=== PATIENT | male | born 1965 | race African-American/Black ===

== ENCOUNTER 2016-12-05 09:34 | Observation (INO) | payer OTHER ==
[2016-12-05] MEDS ORDERED: SODIUM CHLORIDE 0.9% 1,000 ML IV STA (10:34)
[2016-12-05] MEDS ORDERED: KETOROLAC 30 MG/ML 1 ML VIAL IVP STA (10:34)
[2016-12-05 10:52] LABS: Basophils % (A) 0 %; CH 23.5; CHCM 31.3; Eosinophils % (A) 0 %; HCT 49.5 % (39.0-53.0); HDW 2.69; HGB 15.7 gm/dL (13.0-17.5); Hypochromasia Slight; Luc # (Auto) 0.13; Luc % (Auto) 2; Lymphocytes # (A) 1.6 k/uL (1.0-4.8); Lymphocytes % (A) 28 %; MCHC 31.6 g/dL (31.0-37.0); MCV 75.8 fL (80.0-100.0); Mean Platelet Volume 6.8; Microcytosis Slight; Monocytes # (A) 0.3 k/uL (0-1.0); Monocytes % (A) 5 %; Neutrophils # (A) 3.7 k/uL (1.3-7.7); Neutrophils % (A) 64 %; RBC 6.54 m/uL (4.30-5.90); RDW 14.5 % (11.5-15.5); WBC 5.8 k/uL (3.8-10.6); WBC (Perox) 5.84
[2016-12-05 10:55] LABS: Appearance,Urine Clear (Clear); Bilirubin,Urine Negative (Negative); Glucose,Urine (UA) 4+ (Negative); Ketones,Urine 1+ (Negative); Leukocyte Esterase,Urine Negative (Negative); Nitrite,Urine Negative (Negative); PH, Urine 5.5 (5.0-8.0); Protein,Urine Negative (Negative); Specific Gravity,Urine 1.028 (1.001-1.035); UA Billing (MACRO vs. MICRO) CHEM; Urobilinogen,Urine <2.0 mg/dL (<2.0)
--- NOTE | 2016-12-05 10:59 | XR ---
EXAMINATION TYPE: XR chest 2V DATE OF EXAM: 12/05/2016 COMPARISON: NONE HISTORY: Shortness of breath TECHNIQUE: Frontal and lateral views of the chest are obtained. FINDINGS: Scattered senescent parenchymal changes noted. No evidence for infiltrate. No evidence for atelectasis. Heart size is stable. Mediastinal structures are stable and grossly unremarkable. No evidence for hilar prominence. Degenerative changes dorsal spine. IMPRESSION: 1. No evidence for acute pulmonary disease.
--- NOTE | 2016-12-05 11:00 | XR ---
EXAMINATION TYPE: XR KUB DATE OF EXAM: 12/05/2016 COMPARISON: NONE HISTORY: Pain TECHNIQUE: Single supine KUB image of the abdomen is obtained FINDINGS: Small bowel demonstrates no evidence for dilatation or air fluid levels. Gas and fecal material is seen in non-distended colon. No convincing evidence for pneumoperitoneum. No unusual calcifications. The lung bases are clear. The osseous structures are intact. IMPRESSION: 1. Overall nonobstructive bowel gas pattern.
[2016-12-05 11:12] LABS: ALT 63 U/L (21-72); AST 36 U/L (17-59); Alkaline Phosphatase 111 U/L (38-126); Amylase 40 U/L (30-110); Anion Gap 16 mmol/L; Blood Urea Nitrogen 14 mg/dL (9-20); Calcium 9.9 mg/dL (8.4-10.2); Carbon Dioxide 21 mmol/L (22-30); Chloride 96 mmol/L (98-107); Non-African American GFR(MDRD) >60 (>60 ml/min/1.73 sqM); Potassium 5.1 mmol/L (3.5-5.1); Sodium 133 mmol/L (137-145); Total Bilirubin 0.6 mg/dL (0.2-1.3); Total Protein 7.4 g/dL (6.3-8.2)
[2016-12-05 11:17] LABS: Glucose 541 mg/dL (74-99)
[2016-12-05] MEDS ORDERED: SODIUM CHLORIDE 0.9% 2,000 ML IV ONE (11:22)
[2016-12-05] MEDS ORDERED: INSULIN REGULAR 100 UNIT/ML VIAL SQ ONE (11:23)
--- NOTE | 2016-12-05 11:29 | ED ---
Abdominal Pain HPI - General Chief Complaint: Abdominal Pain Stated Complaint: Back/Side Pain Time Seen by Provider: 12/05/16 10:14 Source: patient Mode of arrival: ambulatory Limitations: no limitations - History of Present Illness Initial Comments: 51 -year-old male presents with dry mouth and polyuria generalized weakness generalized abdominal pain and right flank pain. The nauseous but denies vomiting he does have a family history of diabetes. He has never been diagnosed with diabetes though most probably his family to have. Complains about diffuse abdominal pain he moved his bowels this morning it was normal some nausea no vomiting no fever no chills no headaches no chest pain no shortness of breath no weakness of upper or lower extremity - Related Data Home Medications Medication Instructions Recorded Confirmed No Known Home Medications [No 12/05/16 12/05/16 Known Home Medications] Allergies Allergy/AdvReac Type Severity Reaction Status Date / Time No Known Allergies Allergy Verified 12/05/16 09:54 Review of Systems ROS Statement: Those systems with pertinent positive or pertinent negative responses have been documented in the HPI. ROS Other: All systems not noted in ROS Statement are negative. Past Medical History Past Medical History: No Reported History History of Any Multi-Drug Resistant Organisms: None Reported Additional Past Surgical History / Comment(s): Mass removed from right ear. Past Psychological History: No Psychological Hx Reported Smoking Status: Current every day smoker Past Alcohol Use History: None Reported Past Drug Use History: None Reported General Exam - General Exam Comments Initial Comments: General: The patient is awake and alert, in no distress, and does not appear acutely ill. Skin: Skin is warm and dry and no rashes or lesions are noted. Eye: Pupils are equal, round and reactive to light, extra-ocular movements are intact; there is normal conjunctiva bilaterally. Ears, nose, mouth and throat: There are moist mucous membranes and no oral lesions. Neck: The neck is supple, there is no tenderness or JVD. Cardiovascular: There is a regular rate and rhythm. No murmur, rub or gallop is appreciated. Respiratory: To auscultation bilateral, no wheezing no rhonchi no distress respiratory waldron noticed Gastrointestinal. Mild tenderness noticed in the left upper quadrant area bowel sounds are positive no guarding no rebounds Back: There is no tenderness to palpation in the midline. There is no obvious deformity. Musculoskeletal: Normal ROM, no tenderness, There is no pedal edema. There is no calf tenderness or swelling. No cords were appreciated. Neurological: CN II-XII intact, Cranial nerves III through XII are intact. There are no obvious motor or sensory deficits. Coordination appears grossly intact. Speech is normal. Psychiatric: Cooperative, appropriate mood & affect, normal judgment. Limitations: no limitations Course Vital Signs 12/05/16 09:38 Temperature 98.4 F Pulse Rate 87 Respiratory 18 Rate Blood Pressure 152/70 O2 Sat by Pulse 96 Oximetry Patient's sugar was [id number], he was started on a fluids he is definitely diabetic Extremities: Patient polyuria or gallop at 2 L of fluids and 10 units of regular insulin he do not have any primary care physician he would benefit from coming in and patient getting some diabetes education and getting started on a basic medications, this was discussed with him he agreed with that, also discussed with Dr. Marshall, his hospitalist today he could restart the admission is Medical Decision Making - Lab Data Result diagrams: 12/05/16 10:00 12/05/16 10:00 Lab Results 12/05/16 12/05/16 12/05/16 Range/Units 10:00 10:00 10:00 WBC 5.8 (3.8-10.6) k/uL RBC 6.54 H (4.30-5.90) m/uL Hgb 15.7 (13.0-17.5) gm/dL Hct 49.5 (39.0-53.0) % MCV 75.8 L (80.0-100.0) fL MCH 24.0 L (25.0-35.0) pg MCHC 31.6 (31.0-37.0) g/dL RDW 14.5 (11.5-15.5) % Plt Count 216 (150-450) k/uL Neutrophils % 64 % Lymphocytes % 28 % Monocytes % 5 % Eosinophils % 0 % Basophils % 0 % Neutrophils # 3.7 (1.3-7.7) k/uL Lymphocytes # 1.6 (1.0-4.8) k/uL Monocytes # 0.3 (0-1.0) k/uL Eosinophils # 0.0 (0-0.7) k/uL Basophils # 0.0 (0-0.2) k/uL Hypochromasia Slight Microcytosis Slight Sodium 133 L (137-145) mmol/L Potassium 5.1 (3.5-5.1) mmol/L Chloride 96 L (98-107) mmol/L Carbon Dioxide 21 L (22-30) mmol/L Anion Gap 16 mmol/L BUN 14 (9-20) mg/dL Creatinine 1.02 (0.66-1.25) mg/dL Est GFR (MDRD) Af Amer >60 (>60 ml/min/1.73 sqM) Est GFR (MDRD) Non-Af >60 (>60 ml/min/1.73 sqM) Glucose 541 H* (74-99) mg/dL Calcium 9.9 (8.4-10.2) mg/dL Total Bilirubin 0.6 (0.2-1.3) mg/dL AST 36 (17-59) U/L ALT 63 (21-72) U/L Alkaline Phosphatase 111 (38-126) U/L Total Protein 7.4 (6.3-8.2) g/dL Albumin 4.6 (3.5-5.0) g/dL Amylase 40 (30-110) U/L Lipase 219 (23-300) U/L Urine Color Light Yellow Urine Appearance Clear (Clear) Urine pH 5.5 (5.0-8.0) Ur Specific [place] 1.028 (1.001-1.035) Urine Protein Negative (Negative) Urine Glucose (UA) 4+ H (Negative) Urine Ketones 1+ H (Negative) Urine Blood Negative (Negative) Urine Nitrite Negative (Negative) Urine Bilirubin Negative (Negative) Urine Urobilinogen <2.0 (<2.0) mg/dL Ur Leukocyte Esterase Negative (Negative) Disposition Clinical Impression: Diabetes mellitus, new onset Disposition: ADMITTED IP TO THIS [facility] Condition: Good Referrals: None,Stated [Primary Care Provider] - 1-2 days
[2016-12-05 11:48] LABS: C Reactive Protein 7.3 mg/L (<10.0)
[2016-12-05] MEDS ORDERED: ACETAMINOPHEN TAB 325 MG TAB PO PRN (12:12)
[2016-12-05 12:28] LABS: Glucose,Whole Blood 384 mg/dL (75-99)
[2016-12-05 12:33] LABS: Hemoglobin A1C 12.6 % (4.2-6.1)
[2016-12-05] MEDS ORDERED: LISINOPRIL 10 MG TAB PO STA (12:37)
[2016-12-05] MEDS: ENOXAPARIN 40 MG/0.4 ML SYRINGE SQ SCH (13:40)
[2016-12-05] MEDS: SODIUM CHLORIDE 0.9% 1,000 ML IV ONE ×2 (13:40→21:20)
[2016-12-05 13:42] VITALS: BMI 31.3
--- NOTE | 2016-12-05 14:42 | P.HPIM ---
History of Present Illness H&P Date: 12/05/16 Chief Complaint: Urinating a lot The patient is obese 51-year-old male without any significant past smoking history who presents to the ER with chief complaint of Increasing urination polyuria polydipsia and nocturia over the last 3 days, reports which several times at night to urinate, she reports increasing thirst, or mouth and increasing appetite, reports nausea but denies any vomiting , denies any recent illness, Chest pain or shortness of breath, Denies dysuria. Reports right flank pain otherwise has no complaints. She denies changes in his vision, headache or any numbness or tingling In the ER he was noted to be hyperglycemic the serum blood sugar of 541. He was given 10 units of regular insulin and recommended for admission Review of Systems 14 point Review of systems negative except per HPI Past Medical History Past Medical History: No Reported History History of Any Multi-Drug Resistant Organisms: None Reported Additional Past Surgical History / Comment(s): Mass removed from right ear. Past Psychological History: No Psychological Hx Reported Smoking Status: Current every day smoker Past Alcohol Use History: None Reported Past Drug Use History: None Reported Medications and Allergies Home Medications Medication Instructions Recorded Confirmed Type No Known Home Medications [No 12/05/16 12/05/16 History Known Home Medications] Allergies Allergy/AdvReac Type Severity Reaction Status Date / Time No Known Allergies Allergy Verified 12/05/16 09:54 Physical Exam Vitals: Vital Signs Temp Pulse Resp BP Pulse Ox 12/05/16 09:38 98.4 F 87 18 152/70 96 Intake and Output 12/04/16 12/05/16 12/05/16 22:59 06:59 14:59 Other: Weight 90.718 kg Patient Weight 12/06/16 06:59 Weight 90.718 kg Constitutional: No acute distress, conversant, pleasant Eyes: Anicteric sclerae, moist conjunctiva, no lid-lag, PERRLA ENMT: NC/AT,Oropharynx clear, no erythema, exudates Neck:Supple, FROM, no masses, or JVD, No carotid bruits; No thyromegaly Lungs: Clear to auscultation, Clear to percussion, Normal respiratory effort, no accessory muscle use Cardiovascular: Heart regular in rate and rhythm, No murmurs, gallops, or rubs no peripheral edema Abdominal: Soft Nontender, nom distended, no guarding, no rebound or rigidity, Normoactive bowel sounds No hepatomegaly, No splenomegaly, No palpable mass No abdominal wall hernia noted Skin: Normal temperature, tone, texture, turgor, No induration No subcutaneous nodules, No rash, lesions, No ulcers Extremities:No digital cyanosis No clubbing, Pedal pulses intact and symmetrical Radial pulses intact and symmetrical Normal gait and station, No calf tenderness Psychiatric: Alert and oriented to person, place and time, Appropriate affect Intact judgement Neuro: Muscles Strength 5/5 in all 4 extremities, Sensation to light touch grossly present throughout, Cranial nerves II-XII grossly intact. No focal sensory deficits Results CBC & Chem 7: 12/05/16 10:00 12/05/16 10:00 Labs: Abnormal Lab Results - Last 24 Hours (Table) 12/05/16 12/05/16 12/05/16 Range/Units 10:00 10:00 10:00 RBC 6.54 H (4.30-5.90) m/uL MCV 75.8 L (80.0-100.0) fL MCH 24.0 L (25.0-35.0) pg Sodium 133 L (137-145) mmol/L Chloride 96 L (98-107) mmol/L Carbon Dioxide 21 L (22-30) mmol/L Glucose 541 H* (74-99) mg/dL Urine Glucose (UA) 4+ H (Negative) Urine Ketones 1+ H (Negative) Assessment and Plan (1) Diabetes mellitus, new onset Status: Acute (2) Hyponatremia Status: Acute (3) Elevated BP without diagnosis of hypertension Status: Acute Plan: Patient was placed on observation for new onset type 2 diabetes presenting with hyperglycemia and a blood sugar of 560, A1c has been ordered And is pending. Patient does not appear to be in DKA, we'll start him on scheduled subcu insulin with Lantus 12 units at night and Humalog 4 units Qac before meals with sliding scale coverage. Will consult dietitian, urinalysis indicates normal protein and mild ketones and the patient does appear to have elevated blood pressure initiated lisinopril check a lipid panel, EKG and chest x-ray. Patient is hyponatremic likely secondary to elevated blood sugars. We'll also start metformin and continue to follow his clinical course Time with Patient: Greater than 30
[2016-12-05] MEDS: INSULIN LISPRO (humaLOG) 300 UNIT/3 ML VIAL SQ SCH ×4 (14:56→17:52)
[2016-12-05] MEDS ORDERED: INSULIN GLARGINE 100 UNIT/ML 10 ML VIAL SQ SCH (21:00)
[2016-12-05 21:17] LABS: Glucose,Whole Blood 222 mg/dL (75-99)
[2016-12-05] MEDS: metFORMIN 500 MG TAB PO SCH (21:42)
[2016-12-05 21:54] VITALS: RESP 18; TEMP 98.7
[2016-12-06 00:41] LABS: Glucose,Whole Blood 317 mg/dL (75-99)
[2016-12-06 00:41] LABS: Glucose,Whole Blood 336 mg/dL (75-99)
[2016-12-06 07:18] VITALS: PULSE 98
[2016-12-06] MEDS: INSULIN LISPRO (humaLOG) 300 UNIT/3 ML VIAL SQ SCH ×3 (07:56→12:19)
[2016-12-06 08:10] LABS: Anion Gap 8 mmol/L; Blood Urea Nitrogen 13 mg/dL (9-20); Calcium 8.2 mg/dL (8.4-10.2); Carbon Dioxide 22 mmol/L (22-30); Chloride 104 mmol/L (98-107); Glucose 249 mg/dL (74-99); Non-African American GFR(MDRD) >60 (>60 ml/min/1.73 sqM); Potassium 4.3 mmol/L (3.5-5.1); Sodium 134 mmol/L (137-145)
[2016-12-06] MEDS ORDERED: INSULIN GLARGINE 100 UNIT/ML 10 ML VIAL SQ SCH (08:27)
[2016-12-06] MEDS ORDERED: INSULIN LISPRO (humaLOG) 300 UNIT/3 ML VIAL SQ SCH (08:28)
[2016-12-06] MEDS ORDERED: LISINOPRIL 10 MG TAB PO SCH (09:00)
[2016-12-06] MEDS: ENOXAPARIN 40 MG/0.4 ML SYRINGE SQ SCH (10:01)
[2016-12-06] MEDS: metFORMIN 500 MG TAB PO SCH (10:01)
[2016-12-06 10:18] VITALS: BP 123/66
[2016-12-06 12:26] LABS: Glucose,Whole Blood 238 mg/dL (75-99)
[2016-12-06 12:26] LABS: Glucose,Whole Blood 237 mg/dL (75-99)
[2016-12-06 14:25] LABS: Cholesterol 144 mg/dL (<200); HDL Cholesterol 23 mg/dL (40-60)
--- NOTE | 2016-12-06 14:44 | P.DS ---
Providers Date of admission: 12/05/16 11:35 Expected date of discharge: 12/06/16 Attending physician: Liu Elam MD Primary care physician: Stated None Mery Lundy - Discharge Diagnosis(es) (1) Diabetes mellitus, new onset Current Visit: Yes Status: Acute (2) Essential hypertension Current Visit: Yes Status: Acute (3) Hyponatremia Current Visit: Yes Status: Acute Hospital Course: The patient is a 51-year-old -[place] male that was admitted for new onset type 2 diabetes after presented with symptoms of polyuria and nocturia and polydipsia 2 days. Admission he was noted to be hyperglycemic with a blood sugar of 561, A1c was 12.6 patient was started on Lantus 10 units subcu daily at bedtime and Humalog 5 units subcu every before meals. He was started on low-dose lisinopril at 10 mg by mouth daily and seemed to tolerate it well. Diabetic education was consulted and the patient was taught insulin administration. He was also started on metformin 1000 mg by mouth twice a day. Blood sugars gradually improved and his insulin regimen was adjusted Lantus 20 units subcu daily at bedtime and Humalog 7 units subcu every before meals prior to discharge. He was subsequently discharged home in stable condition With new prescriptions for Lantus Solostar 20 units SQhs, NovoLog flex pen 7 units Sq qac with diabetic supplies. He was encouraged to do 4 times a day testing and provide Mentation at his follow-up visit with his new PCP Dr. Mery Lundy 12/13/16 at 10:00 am. This discharge process took approximately 35 minutes Patient Condition at Discharge: Good Plan - Discharge Summary New Discharge Prescriptions: New Insulin Aspart [NovoLOG Flexpen] 7 units SQ AC-TID #30 ml Insulin Glargine,Hum.rec.anlog [Lantus Solostar] 20 unit SQ HS #30 ml Lisinopril [Zestril] 10 mg PO DAILY #30 tab metFORMIN HCL 1,000 mg PO BID #60 tab Discharge Medication List Insulin Aspart [NovoLOG Flexpen] 7 units SQ AC-TID #30 ml 12/06/16 [Rx] Insulin Glargine,Hum.rec.anlog [Lantus Solostar] 20 unit SQ HS #30 ml 12/06/16 [ Rx] Lisinopril [Zestril] 10 mg PO DAILY #30 tab 12/06/16 [Rx] metFORMIN HCL 1,000 mg PO BID #60 tab 12/06/16 [Rx] Follow up Appointment(s)/Referral(s): Mery Lundy MD [STAFF PHYSICIAN] - 12/13/16 10:30 am () Patient Instructions/Handouts: Hyponatremia (DC) Discharge Disposition: HOME SELF-CARE
[2016-12-06 16:37] LABS: Urine Creatinine 131.2 mg/dL
== END 2016-12-06 15:15 | disposition home or self-care (01) ==
LOC: EC 09:34 → INTOOBSV 11:35 → 5MS5E 11:35
PROVIDERS: ADMIT Family Medicine; ATTEND Family Medicine
DX: E11.65 Type 2 diabetes mellitus with hyperglycemia (principal); E87.1 Hypo-osmolality and hyponatremia; I10 Essential (primary) hypertension; F17.200 Nicotine dependence, unspecified, uncomplicated; E66.9 Obesity, unspecified; Z68.31 Body mass index [BMI] 31.0-31.9, adult; Z83.3 Family history of diabetes mellitus
CPT/HCPCS: 99285; 96374; 96361 ×5; 96372; 36415; 93005; 80061; 80053; 80048; 82150; 83036; 83690; 85025; 86140; 81003; 82043; 82570; 71020; 74000; G0378 ×2; J1650; J1885